=== PATIENT | female | born 1985 | race Two or more races ===

== ENCOUNTER 2020-07-11 06:20 | Day surgery (SDC) | payer OTHER ==
[~2020-07-11 06:20] MED LIST: SIMVAST PO
[2020-07-11] MEDS ORDERED: ALEVE220 M1 PO (16:27)
[2020-07-11] MEDS ORDERED: DUI500 PO (16:27)
[2020-07-11] MEDS ORDERED: PERCOCET 5-3251 EACH PO (16:27)
== END 2020-07-11 18:55 | disposition home or self-care (01) ==
LOC: CIR.AMB 06:20
PROVIDERS: ATTEND Orthopaedic Surgery
DX: S52.571A Other intraarticular fracture of lower end of right radius, initial encounter for closed fracture (principal); Z20.828 Contact with and (suspected) exposure to other viral communicable diseases
CPT/HCPCS: 25609; C1776; 20902